=== PATIENT | male | born 1990 | race American Indian/Alaskan Native ===

== ENCOUNTER 2017-08-15 07:14 | Emergency (ER) | payer OTHER ==
[2017-08-15] MEDS ORDERED: cefTRIAXone (Rocephin) 250 mg Inj IM STA (07:50)
[2017-08-15] MEDS ORDERED: Penicillin G Benzathine 2.4 Mill Unit/4 ml Syr IM ONE (07:53)
--- NOTE | 2017-08-15 08:23 | C.PDOC ---
History Of Present Illness 27 year old male presents to the ED with complaints of redness, swelling and pain to left leg for 2 days. He is not sure if insect bit him but states he has seen spiders in his home. Additionally patient wants testing and treatment for Syphilis. He states his partner admitted to him 2 weeks ago that he was diagnosed and treated. Patient reports noticing red spots and rash to his penis. Denies any pain, dysuria, discharge, testicular pain. Time Seen by Provider: 08/15/17 07:25 Chief Complaint (Nursing): Abnormal Skin Integrity History Per: Patient History/Exam Limitations: no limitations Onset/Duration Of Symptoms: Days Current Symptoms Are (Timing): Still Present Severity: Moderate Past Medical History Reviewed: Historical Data, Nursing Documentation, Vital Signs Vital Signs: Last Vital Signs Temp 99.1 F 08/15/17 07:17 Pulse 95 H 08/15/17 07:17 Resp 16 08/15/17 07:17 BP 129/85 08/15/17 07:17 Pulse Ox 98 08/15/17 08:40 - Medical History PMH: HIV Family History: States: No Known Family Hx - Social History Hx Alcohol Use: No Hx Substance Use: Yes Review Of Systems Constitutional: Negative for: Fever, Chills Respiratory: Negative for: Shortness of Breath Gastrointestinal: Negative for: Nausea, Vomiting Genitourinary: Negative for: Dysuria, Penile Discharge, Penile Pain Musculoskeletal: Positive for: Leg Pain (Left: +redness, +swelling) Physical Exam - Physical Exam Appears: Non-toxic, No Acute Distress Skin: Other (Left leg: distal lateral area with erythema, tenderness and mild swelling. Slight induration, no fluctuance) Head: Normacephalic Eye(s): bilateral: PERRL Nose: Normal Oral Mucosa: Moist Lips: Normal Appearing Neck: Normal ROM Chest: Symmetrical Cardiovascular: Rhythm Regular, No Murmur Respiratory: Normal Breath Sounds, No Accessory Muscle Use Male Genital: Other (2 chancre to shaft of penis, very mild inguinal lymphadenopathy left side) Extremity: Normal ROM, No Deformity, No Swelling Neurological/Psych: Oriented x3, Normal Speech ED Course And Treatment O2 Sat by Pulse Oximetry: 98 (RA) Pulse Ox Interpretation: Normal Medical Decision Making Medical Decision Making: Patient with known sexual partner diagnosed and treated for Syphilis. Will treat for STI with 2.4million units Benzathine Penicillin G and also for Gonorrhea and chlamydia with Rocephin and Zithromax. Rx given for cellulitis of leg. Advise follow up in clinic for further evaluation of STI and wound check. Disposition Counseled Patient/Family Regarding: Diagnosis, Need For Followup, Rx Given - Disposition Referrals: [facility] [Outside] [facility] [Outside] Disposition: HOME/ ROUTINE Disposition Time: 08:33 Condition: GOOD Additional Instructions: Take antibiotic twice daily for skin infection Take ibuprofen for any leg pain and apply warm compresses You have been treated for sexual transmitted diseases with Penicillin G, Rocephin and Zithromax Lab results can take up to 3 days for results and will be contacted with any positive results Please follow up with clinic or your doctor for further care Prescriptions: Doxycycline Hyclate 100 mg PO BID #14 capsule Instructions: Syphilis (DC), Screening for Sexually Transmitted Infections, Cellulitis (Skin Infection), Adult (DC) Forms: [employer] ([place]), [facility] - POA Present On Arrival: None - Clinical Impression Clinical Impression: Syphilis contact, untreated, Exposure to STD, Cellulitis of leg, left - Scribe Statement The provider has reviewed the documentation as recorded by the Scribe (Chel Romo) All medical record entries made by the Scribe were at my direction and personally dictated by me. I have reviewed the chart and agree that the record accurately reflects my personal performance of the history, physical exam, medical decision making, and the department course for this patient. I have also personally directed, reviewed, and agree with the discharge instructions and disposition.
[2017-08-15 10:16] VITALS: BP 124/85; PULSE 88; RESP 20; TEMP 98.9
[2017-08-15 16:05] VITALS: O2SAT 98
[2017-08-15 18:55] LABS: RAPID PLASMA REAGIN REACTIVE (NONREACTIVE)
== END 2017-08-15 09:55 | disposition home or self-care (01) ==
LOC: C.ER 07:14
DX: L03.116 Cellulitis of left lower limb (principal); Z20.2 Contact with and (suspected) exposure to infections with a predominantly sexual mode of transmission
CPT/HCPCS: 86592; 86780; 87491; 87591; 96372; 99283; J0561; J0696

== ENCOUNTER 2018-01-05 12:45 | Emergency (ER) | payer OTHER ==
[2018-01-05 13:14] VITALS: BP 138/78; PULSE 84; RESP 18; TEMP 98.3; O2SAT 100
--- NOTE | 2018-01-05 14:36 | C.PDOC ---
History Of Present Illness 27 year old male patient presents to the ER because he was upset that his father x4 days ago. Patient has no physical complaints. Patient denies SI/HI, hallucination and psychiatric history. Chief Complaint (Nursing): Psychiatric Evaluation History Per: Patient History/Exam Limitations: no limitations Onset/Duration Of Symptoms: Days (x4) Current Symptoms Are (Timing): Still Present Past Medical History Reviewed: Historical Data, Nursing Documentation, Vital Signs Vital Signs: Last Vital Signs Temp 98.3 F 01/05/18 13:13 Pulse 84 01/05/18 13:13 Resp 18 01/05/18 13:13 BP 138/78 01/05/18 13:13 Pulse Ox 100 01/05/18 14:42 - Medical History PMH: HIV Family History: States: No Known Family Hx - Social History Hx Alcohol Use: No Hx Substance Use: Yes Review Of Systems Except As Marked, All Systems Reviewed And Found Negative. Constitutional: Negative for: Other (pyschiatric hx) Psych: Negative for: Suicidal ideation, Other (Homicidal ideation or hallucination) Physical Exam - Physical Exam Appears: Well, Non-toxic, No Acute Distress Skin: Normal Color, Warm, Dry Head: Atraumatic, Normacephalic Eye(s): bilateral: Normal Inspection, EOMI Cardiovascular: Rhythm Regular Respiratory: Normal Breath Sounds Extremity: Normal ROM (x4) Neurological/Psych: Oriented x3, Normal Speech ED Course And Treatment O2 Sat by Pulse Oximetry: 100 (RA) Pulse Ox Interpretation: Normal Medical Decision Making Medical Decision Making: Impression: upset due to loss of family member Reassess: Patient is resting comfortably and remains stable. Crisis gave patient information for bereavement. Patient will be discharge. Disposition - Disposition Referrals: [facility] Elva Dickens, [Non-Staff] - Disposition: HOME/ ROUTINE Disposition Time: 13:10 Condition: GOOD Additional Instructions: DAO MANUEL, thank you for letting us take care of you today. The emergency medical care you received today was directed at your acute symptoms. If you were prescribed any medication, please fill it and take as directed. It may take several days for your symptoms to resolve. Return to the Emergency Department if your symptoms worsen, do not improve, or if you have any other problems. Please contact your doctor or call one of the physicians/clinics you have been referred to that are listed on the Patient Visit Information form that is included in your discharge packet. Bring any paperwork you were given at discharge with you along with any medications you are taking to your follow up visit. Our treatment cannot replace ongoing medical care by a primary care provider outside of the emergency department. Thank you for allowing the [facility] team to be part of your care today. Follow up with our Endodontics Dentist as per the information given by our crisis team. Instructions: Dealing With , Adult Forms: [employer] (Citizen [place]) - Clinical Impression Clinical Impression: Bereavement - Scribe Statement The provider has reviewed the documentation as recorded by the Scribe Priest Do Provider Attestation: All medical record entries made by the Scribe were at my direction and personally dictated by me. I have reviewed the chart and agree that the record accurately reflects my personal performance of the history, physical exam, medical decision making, and the department course for this patient. I have also personally directed, reviewed, and agree with the discharge instructions and disposition.
== END 2018-01-05 13:20 | disposition home or self-care (01) ==
LOC: C.ER 12:45
DX: Z63.4 Disappearance and death of family member (principal)